=== PATIENT | female | born 1945 | race Caucasian/White ===

== ENCOUNTER 2016-12-22 16:36 | Emergency (ER) | payer OTHER ==
[2016-12-22] MEDS ORDERED: ASPIRIN 81 MG CHEWABLE TAB PO ONE (18:01)
--- NOTE | 2016-12-22 18:23 | CPEKG ---
Heart Rate: 60 RR Interval: 1000 P-R Interval: 180 QRSD Interval: 86 QT Interval: 420 QTC Interval: 420 P [place]: 54 QRS [place]: -23 T Wave [place]: 35 EKG Severity - ABNORMAL ECG - EKG Impression: SINUS RHYTHM EKG Impression: PROBABLE INFERIOR INFARCT, OLD Electronically Signed By: Marcin Alvarez 22-Dec-2016 22:26:28
--- NOTE | 2016-12-22 18:52 | EDPHY ---
H & P Time Seen by Provider: 12/22/16 17:57 HPI/ROS: Chief complaint. Shortness of breath, chest pain HPI. Patient is 71-year-old female with shortness of breath with exertion for the past 2-3 weeks. She has had occasional chest pain with exertion. 2 weeks ago she woke slept with a fast heart rate. When she has symptoms of chest discomfort she describes as a dull ache in the anterior left side of her chest. No radiation. She has shortness of breath especially with caring groceries up stairs which 2 months ago was not and issue for her. She does have a history of a racing heart and does take atenolol. She has had a cough that she feels is an allergic type cough. She has had no fever. She has had the abdominal pain for 1 year with occasional nausea and this is not different. She feels that she has had increased swelling in both legs for the past 2 weeks. No history of heart or lung problems other than the racing heart in the past ROS Constitutional. no fever/chills, no weakness Eyes. no problems with vision ENT. no sore throat, no nasal drainage Cardiovascular. Chest pain Respiratory. Exertional shortness of breath and allergic cough Abdominal. no abdominal pain, no nausea/vomiting, no diarrhea . no problems urinating MS. no calf pain/swelling, no neck/back pain, no joint pain Skin. no rash Lymph. no swollen glands Neuro. no headache, no dizziness, no difficulty walking or with speech Past Medical/Surgical History: Atrial fibrillation, appendectomy, GERD Social History: Single, nonsmoker, no alcohol Smoking Status: Former smoker Physical Exam: General Appearance: Alert pleasant well-developed female mild distress vital signs are stable Eyes: Pupils equal and round no pallor or injection. ENT, Mouth: Mucous membranes are moist. Respiratory: There are no retractions, lungs are clear to auscultation. Cardiovascular: Regular rate and rhythm. Gastrointestinal: Abdomen is soft and nontender, no masses, bowel sounds normal. Neurological: Awake and alert, sensory and motor exams grossly normal. Skin: Warm and dry, no rashes. Musculoskeletal: Neck is supple nontender. Extremities symmetrical, full range of motion. No significant edema Psychiatric: Patient is oriented X 3, there is no agitation. Constitutional: Initial Vital Signs Temperature (C) 36.7 C 12/22/16 16:38 Heart Rate 68 12/22/16 16:38 Respiratory Rate 18 12/22/16 16:38 Blood Pressure 130/67 H 12/22/16 16:38 O2 Sat (%) 98 12/22/16 16:38 O2 Delivery Mode Room Air Allergies/Adverse Reactions: Penicillins Allergy (Severe, Verified 12/22/16 16:38) Anaphylaxis Sulfa (Sulfonamide Antibiotics) Allergy (Severe, Verified 12/22/16 16:38) Anaphylaxis cephalexin monohydrate [From Keflex] Allergy (Verified 12/22/16 16:38) Home Medications: Medication Instructions Recorded Atenolol [Tenormin 50 mg (*)] 50 mg PO 12/22/16 Omeprazole [Prilosec 20 mg] 20 mg PO DAILY 12/22/16 Medical Decision Making - Diagnostics Imaging Results: Imaging Impressions Chest X-Ray 12/22/16 18:01 Impression: Chest negative for acute cardiopulmonary abnormality. Somewhat shallow inspiration exaggerates lung markings. Chest x-ray interpreted by me is normal Procedures: IV normal saline, monitor ED Course/Re-evaluation: Re-evaluation 7:55 p.m.. The patient and I discussed imaging lab EKG results. We discussed treatment plan including recommendation for admission. The patient however would like to go home and be treated as an outpatient. She and I discussed returning to the emergency department over the weekend should she have worsening symptoms including worsening breathing or chest discomfort. She agrees to call Cardiology on Sunday morning for outpatient follow-up and stress test. Differential Diagnosis: I consider congestive heart failure, pulmonary embolus, acute coronary syndrome , tachy dysrhythmia - Data Points Laboratory Results: Laboratory Results 12/22/16 18:51 12/22/16 18:51 12/22/16 12/22/16 12/22/16 18:51 18:51 18:51 WBC 5.38 10^3/uL 10^3/uL (3.80-9.50) RBC 4.50 10^6/uL 10^6/uL (4.18-5.33) Hgb 14.1 g/dL g/dL (12.6-16.3) Hct 42.3 % % (38.0-47.0) MCV 94.0 fL fL (81.5-99.8) MCH 31.3 pg pg (27.9-34.1) MCHC 33.3 g/dL g/dL (32.4-36.7) RDW 12.7 % % (11.5-15.2) Plt Count 208 10^3/uL 10^3/uL (150-400) MPV 11.4 fL fL (8.7-11.7) Neut % (Auto) 56.5 % % (39.3-74.2) Lymph % (Auto) 29.4 % % (15.0-45.0) Pepin % (Auto) 9.3 % % (4.5-13.0) Eos % (Auto) 3.7 % % (0.6-7.6) Baso % (Auto) 0.9 % % (0.3-1.7) Nucleat RBC Rel Count 0.0 % % (0.0-0.2) Absolute Neuts (auto) 3.04 10^3/uL 10^3/uL (1.70-6.50) Absolute Lymphs (auto) 1.58 10^3/uL 10^3/uL (1.00-3.00) Absolute Monos (auto) 0.50 10^3/uL 10^3/uL (0.30-0.80) Absolute Eos (auto) 0.20 10^3/uL 10^3/uL (0.03-0.40) Absolute Basos (auto) 0.05 10^3/uL 10^3/uL (0.02-0.10) Absolute Nucleated RBC 0.00 10^3/uL 10^3/uL (0-0.01) Immature Gran % 0.2 % % (0.0-1.1) Immature Gran # 0.01 10^3/uL 10^3/uL (0.00-0.10) D-Dimer < 0.27 ug/mLFEU ug/mLFEU (0.00-0.50) Sodium 142 mEq/L mEq/L (134-144) Potassium 4.1 mEq/L mEq/L (3.5-5.2) Chloride 107 mEq/L mEq/L (97-110) Carbon Dioxide 22 mEq/l mEq/l (22-31) Anion Gap 13 mEq/L mEq/L (8-16) BUN 17 mg/dL mg/dL (7-23) Creatinine 0.8 mg/dL mg/dL (0.6-1.0) Estimated GFR > 60 Glucose 98 mg/dL mg/dL (70-100) Calcium 9.9 mg/dL mg/dL (8.5-10.4) Troponin I < 0.012 ng/mL ng/mL (0-0.034) NT-Pro-B Natriuret Pep 125 pg/mL pg/mL (0-125) Medications Given: Discontinued Medications Aspirin (Aspirin) 324 mg PO EDNOW ONE Stop: 12/22/16 18:02 Last Admin: 12/22/16 18:43 Dose: 324 mg Departure - Departure Disposition: Home, Routine, Self-Care Clinical Impression: Dyspnea on exertion Condition: Good Instructions: Dyspnea (ED) Additional Instructions: Easy activity over the weekend. Please call Cardiology on Sunday morning for outpatient stress test and evaluation. Return over the weekend for worsening chest discomfort or trouble breathing. Referrals: Abbi Lopez MD [Primary Care Provider] - As per Instructions Nelson Guzman MD [Medical Doctor] - 2-3 days without fail
[2016-12-22 18:58] LABS: % IMMATURE GRANULYOCYTES 0.2 % (0.0-1.1); ABSOLUTE IMMATURE GRANULOCYTES 0.01 10^3/uL (0.00-0.10); ADD DIFF? NO; ADD MORPH? NO; ADD SCAN? NO; ATYPICAL LYMPHOCYTE FLAG 10 (0-99); FRAGMENT RBC FLAG 0 (0-99); HEMATOCRIT 42.3 % (38.0-47.0); HEMOGLOBIN 14.1 g/dL (12.6-16.3); LEFT SHIFT FLG 0 (0-99); LIPEMIA HEMOLYSIS FLAG 80 (0-99); MEAN CELL HEMOGLOBIN 31.3 pg (27.9-34.1); MEAN CELL HEMOGLOBIN CONCENTR. 33.3 g/dL (32.4-36.7); MEAN PLATELET VOLUME 11.4 fL (8.7-11.7); PLATELET CLUMPS FLAG 0 (0-99); PLATELET COUNT 208 10^3/uL (150-400); RED CELL DISTRIBUTION WIDTH 12.7 % (11.5-15.2)
[2016-12-22 19:11] LABS: ANION GAP 13 mEq/L (8-16); CALCIUM 9.9 mg/dL (8.5-10.4); CARBON DIOXIDE 22 mEq/l (22-31); CHLORIDE 107 mEq/L (97-110); CREATININE 0.8 mg/dL (0.6-1.0); GLOMERULAR FILTRATION RATE > 60; GLUCOSE 98 mg/dL (70-100); POTASSIUM 4.1 mEq/L (3.5-5.2); SODIUM 142 mEq/L (134-144)
[2016-12-22 19:22] LABS: TROPONIN I < 0.012 ng/mL (0-0.034)
[2016-12-22 20:18] VITALS: BP 139/92; PULSE 70; RESP 16; TEMP 98.4; O2SAT 94
== END 2016-12-22 20:17 | disposition home or self-care (01) ==
DX: R06.09 Other forms of dyspnea (principal); Z87.891 Personal history of nicotine dependence

== ENCOUNTER → 2016-12-26 | Outpatient (CLI) | payer OTHER | LOC: BHFA 11:30 | PROVIDERS: ATTEND Internal Medicine | DX: R07.9 Chest pain, unspecified (principal); R06.02 Shortness of breath ==

== ENCOUNTER → 2017-01-03 | Outpatient (CLI) | payer OTHER | LOC: BHFA 08:30 | PROVIDERS: ATTEND Internal Medicine Cardiovascular Disease | DX: R07.9 Chest pain, unspecified (principal) | CPT/HCPCS: 78452; 93017; A9500; J2785 ==